=== PATIENT | male | born 1980 | race Caucasian/White ===

== ENCOUNTER 2018-05-25 12:25 | Day surgery (SDC) | payer OTHER ==
[~2018-05-25] VITALS: Ht 177.8 cm; Wt 78.0 kg
[~2018-05-25 12:25] MED LIST: EPINEPHRINE 1 MG/ML, 1ML ONE; LIDOCAINE 1%, 20ML ONE
[2018-05-25] MEDS ORDERED: LIDOCAINE 1%, 20ML ONE (13:01)
[2018-05-25 13:43] VITALS: BP 135/89
[2018-05-25] MEDS ORDERED: NONE PER PT (13:56)
[2018-05-25] MEDS ORDERED: ROPIvacaine/PF 0.5%, 30 ML ONE (14:12)
[2018-05-25] MEDS ORDERED: LACTATED RINGERS 1,000 ML IV SCH (14:18)
[2018-05-25] MEDS ORDERED: FENTANYL PF 100 MCG/2ML ONE ×3 (14:48→16:37)
[2018-05-25] MEDS ORDERED: MIDAZOLAM 1 MG/ML, 2ML ONE (14:49)
[2018-05-25] MEDS ORDERED: PLEASE ENTER ALLERGIES MC SCH (15:00)
[2018-05-25] MEDS ORDERED: PROMETHAZINE 12.5 MG SUPP PR PRN (15:30)
[2018-05-25] MEDS ORDERED: MEPERIDINE/PF 25MG/0.5ML IVPush PRN (15:30)
[2018-05-25] MEDS ORDERED: hydrALAzine 20 MG/ML, 1ML IV PRN (15:30)
[2018-05-25] MEDS ORDERED: OXYcodone 5 MG/5 ML ORAL.SOL UDC PO PRN (15:30)
[2018-05-25] MEDS ORDERED: PROMETHAZINE 25 MG/ML, 1ML IV PRN (15:30)
[2018-05-25] MEDS ORDERED: LABETALOL 5MG/ML, 20ML IV PRN (15:30)
[2018-05-25] MEDS ORDERED: PROMETHAZINE 25 MG SUPP PR PRN (15:30)
[2018-05-25] MEDS ORDERED: ONDANSETRON 2MG/ML, 2ML IV PRN (15:30)
[2018-05-25] MEDS ORDERED: MORPHINE SULFATE 4 MG/ML, 1ML IVPush PRN (15:30)
[2018-05-25] MEDS ORDERED: ACETAMINOPHEN 325 MG TABLET PO PRN (15:30)
[2018-05-25] MEDS ORDERED: PROMETHAZINE 25 MG/ML, 1ML IM PRN ×2 (15:30)
[2018-05-25] MEDS ORDERED: FENTANYL PF 100 MCG/2ML IV PRN (15:30)
[2018-05-25] MEDS ORDERED: HYDROmorphone 2 MG/ML, 1ML IVPush PRN (15:30)
[2018-05-25] MEDS ORDERED: ONDANSETRON ODT 8 MG PO PRN (15:30)
[2018-05-25] MEDS ORDERED: CEFAZOLIN 1,000 MG ONE (15:32)
[2018-05-25] MEDS ORDERED: PROPOFOL 10 MG/ML, 20ML ONE (15:32)
[2018-05-25] MEDS ORDERED: OXYcodone 5 MG/5 ML ORAL.SOL UDC ONE (16:36)
[2018-05-25] MEDS ORDERED: ACETAMINOPHEN 650 MG/20.3 ML UDC ONE (16:37)
== END 2018-05-25 19:00 | disposition home or self-care (01) ==
LOC: OUT 12:25
PROVIDERS: ATTEND Orthopaedic Surgery
DX: S83.241A Other tear of medial meniscus, current injury, right knee, initial encounter (principal); S83.281A Other tear of lateral meniscus, current injury, right knee, initial encounter; M65.861 Other synovitis and tenosynovitis, right lower leg; X58.XXXA Exposure to other specified factors, initial encounter; Y93.89 Activity, other specified; Y92.89 Other specified places as the place of occurrence of the external cause; Y99.8 Other external cause status
CPT/HCPCS: 29876; 29880; J0171; J0690; J2250; J2704; J2795; J3010; J3490; J7120